=== PATIENT | male | born 1975 | race Caucasian/White ===

== ENCOUNTER 2017-08-30 22:19 | Emergency (ER) | payer BC, OTHER ==
[2017-08-30] MEDS ORDERED: NS 0.9% 1000 ML*IV.FLUID IV ONE (22:33)
[2017-08-30] MEDS ORDERED: Vancomycin(*) 1,000 MG in NS 0.9% 250 ML* 250 ML IVPB ONE (22:34)
[2017-08-30] MEDS ORDERED: Piperacillin/Tazobac ADVAN(*) 3.375 GM in NS 0.9% 100 ML* 100 ML IVPB ONE (22:34)
[2017-08-30 23:09] LABS: Hematocrit 49 % (42-52); Hemoglobin 16.8 g/dl (14.0-18.0); Mean Corpuscular HGB Conc 35 g/dl (31-36); Mean Corpuscular Hemoglobin 29 pg (27-31); Mean Corpuscular Volume 84 fL (80-94); Mean Platelet Volume 8 um3 (7.4-10.4); Platelet Count 234 10^3/ul (150-450); Red Blood Count 5.78 10^6/ul (4.0-5.4); Red Cell Distribution Width 14 % (10.5-15); White Blood Count 16.4 10^3/ul (3.5-10.8)
[2017-08-30 23:21] LABS: EGFR Non-African American 75.7 (>60)
[2017-08-30 23:24] LABS: INR 0.88 (0.77-1.02)
[2017-08-30] MEDS ORDERED: Iohexol 300* (CONTRAST) 10 ML SDV IV ONE ×2 (23:25→23:32)
[2017-08-31 00:13] LABS: ABS Basophils 0.1 10^3/ul (0-0.2); ABS Eosinophils 0.1 10^3/ul (0-0.6); ABS Lymphocytes 3.4 10^3/ul (1.0-4.8); ABS Monocytes 1.7 10^3/ul (0-0.8); ABS Neutrophils 11.1 10^3/ul (1.5-7.7); ABS Nucleated RBC 0 10^3/ul; Eosinophil % 0.7 % (0-6); Lymphocyte % 20.4 % (25-47); Nucleated Red Blood Cells % 0.1
[2017-08-31 01:44] VITALS: BP 147/88
--- NOTE | 2017-08-31 07:58 | RAD ---
HISTORY: Left facial abscess, possible infection of face COMPARISONS: None TECHNIQUE: Multiple contiguous axial CT scans were obtained of the face with intravenous contrast, with coronal and sagittal multiplanar reformations. FINDINGS: BONES: There is no displaced fracture or dislocation. The orbital rim is intact. The zygomatic arch is intact. The pterygoid plates are intact. ORBITS: The globes are round. The optic nerves are symmetric. The extraocular musculature is normal. There is no post septal or intraconal inflammatory change. There is no retrobulbar hematoma. PARANASAL SINUSES: There is mucosal thickening of the maxillary sinuses bilaterally. BRAIN AND SOFT TISSUE: Unremarkable. There is no loculated fluid collection to suggest abscess. OTHER: Carious disease is noted. There is no abnormal enhancement. IMPRESSION: CARIOUS DISEASE. RECOMMEND CONSIDERATION OF DENTAL CONSULTATION. NO LOCULATED FLUID COLLECTION TO SUGGEST ABSCESS.
--- NOTE | 2017-09-28 20:27 | ED ---
Oleksandr Sultana Stephanie, scribed for Gilma Cordoba MD on 08/30/17 at 2340 . Throat Pain/Nasal Congestion - HPI Summary HPI Summary: The pt is a 42 y/o M presenting to the ED with c/o facial pain that began on 08/29 s/p cutting his L nostril with a nose hair cecilio on 08/26/17. Symptoms include fever (99.3 F). The pt received Keflex from Dr. Lizarraga. He states he took 2 pills thus far and states he began to feel better within the last 20 minutes. - History of Current Complaint Chief Complaint: EDFacialInjury Time Seen by Provider: 08/30/17 22:35 Hx Obtained From: Patient Onset/Duration: Gradual Onset, Lasting Days - 4, Still Present Severity: Mild - Allergies/Home Medications Allergies/Adverse Reactions: Allergies Allergy/AdvReac Type Severity Reaction Status Date / Time No Known Allergies Allergy Verified 08/30/17 22:26 PMH/Surg Hx/FS Hx/Imm Hx Endocrine/Hematology History: Denies: Hx Diabetes Cardiovascular History: Denies: Hx Hypertension History: Denies: Hx Renal Disease - Surgical History Surgery Procedure, Year, and Place: NONE Infectious Disease History: No Infectious Disease History: Denies: Traveled Outside the [place] in Last 30 Days - Family History Known Family History: Positive: Unknown - Reviewed and noncontributory - Social History Occupation: Employed Full-time Lives: With Family Alcohol Use: Occasionally Substance Use Type: Reports: None Smoking Status (MU): Never Smoked Tobacco Review of Systems Positive: Fever Positive: Other - L facial pain All Other Systems Reviewed And Are Negative: Yes Physical Exam - Summary Physical Exam Summary: VITAL SIGNS: Reviewed. GENERAL: Patient is a well-developed and nourished MALE who is lying comfortable in the stretcher. Patient is not in any acute respiratory distress. HEAD AND FACE: No signs of trauma. No ecchymosis, hematomas or skull depressions. No sinus tenderness. Mild hyperemia without bleeding over mucosa of L nostril. Mild facial tenderness with minimal swelling. EYES: PERRLA, EOMI x 2, No injected conjunctiva, no nystagmus. EARS: Hearing grossly intact. Ear canals and tympanic membranes are within normal limits. MOUTH: Oropharynx within normal limits. NECK: Supple, trachea is midline, no adenopathy, no JVD, no carotid bruit, no c- spine tenderness, neck with full ROM. CHEST: Symmetric, no tenderness at palpation LUNGS: Clear to auscultation bilaterally. No wheezing or crackles. CVS: Regular rate and rhythm, S1 and S2 present, no murmurs or gallops appreciated. ABDOMEN: Soft, non-tender. No signs of distention. No rebound no guarding, and no masses palpated. Bowel sounds are normal. EXTREMITIES: FROM in all major joints, no edema, no cyanosis or clubbing. NEURO: Alert and oriented x 3. No acute neurological deficits. Speech is normal and follows commands. SKIN: Dry and warm Triage Information Reviewed: Yes Vital Signs On Initial Exam: Initial Vitals Temp Pulse Resp BP Pulse Ox 99.0 F 109 16 177/111 99 08/30/17 22:23 08/30/17 22:23 08/30/17 22:23 08/30/17 22:23 08/30/17 22:23 Vital Signs Reviewed: Yes Diagnostics - Vital Signs Vital Signs Temp Pulse Resp BP Pulse Ox 08/30/17 22:23 99.0 F 109 16 177/111 99 - Laboratory Lab Results: Lab Results 08/30/17 08/30/17 08/30/17 Range/Units 23:00 23:00 23:00 WBC 16.4 H (3.5-10.8) 10^3/ul RBC 5.78 H (4.0-5.4) 10^6/ul Hgb 16.8 (14.0-18.0) g/dl Hct 49 (42-52) % MCV 84 (80-94) fL MCH 29 (27-31) pg MCHC 35 (31-36) g/dl RDW 14 (10.5-15) % Plt Count 234 (150-450) 10^3/ul MPV 8 (7.4-10.4) um3 Neut % (Auto) Pending Lymph % (Auto) Pending Beadle % (Auto) Pending Eos % (Auto) Pending Baso % (Auto) Pending Absolute Neuts (auto) Pending Absolute Lymphs (auto) Pending Absolute Monos (auto) Pending Absolute Eos (auto) Pending Absolute Basos (auto) Pending Absolute Nucleated RBC Pending Nucleated RBC % Pending INR (Anticoag Therapy) 0.88 (0.77-1.02) APTT 26.7 (26.0-36.3) seconds Sodium 134 (133-145) mmol/L Potassium Pending Chloride 99 L (101-111) mmol/L Carbon Dioxide 25 (22-32) mmol/L Anion Gap Pending BUN 15 (6-24) mg/dL Creatinine 1.08 (0.67-1.17) mg/dL Est GFR ( Amer) 97.4 (>60) Est GFR (Non-Af Amer) 75.7 (>60) BUN/Creatinine Ratio 13.9 (8-20) Glucose 137 H (70-100) mg/dL Lactic Acid (0.5-2.0) mmol/L Calcium 9.6 (8.6-10.3) mg/dL Total Bilirubin 1.30 H (0.2-1.0) mg/dL AST Pending ALT 30 (7-52) U/L Alkaline Phosphatase 67 (34-104) U/L C-Reactive Protein 14.82 H (< 5.00) mg/L Total Protein 7.9 (6.4-8.9) g/dL Albumin 4.5 (3.2-5.2) g/dL Globulin 3.4 (2-4) g/dL Albumin/Globulin Ratio 1.3 (1-3) 08/30/17 Range/Units 23:00 WBC (3.5-10.8) 10^3/ul RBC (4.0-5.4) 10^6/ul Hgb (14.0-18.0) g/dl Hct (42-52) % MCV (80-94) fL MCH (27-31) pg MCHC (31-36) g/dl RDW (10.5-15) % Plt Count (150-450) 10^3/ul MPV (7.4-10.4) um3 Neut % (Auto) Lymph % (Auto) Beadle % (Auto) Eos % (Auto) Baso % (Auto) Absolute Neuts (auto) Absolute Lymphs (auto) Absolute Monos (auto) Absolute Eos (auto) Absolute Basos (auto) Absolute Nucleated RBC Nucleated RBC % INR (Anticoag Therapy) (0.77-1.02) APTT (26.0-36.3) seconds Sodium (133-145) mmol/L Potassium Chloride (101-111) mmol/L Carbon Dioxide (22-32) mmol/L Anion Gap BUN (6-24) mg/dL Creatinine (0.67-1.17) mg/dL Est GFR ( Amer) (>60) Est GFR (Non-Af Amer) (>60) BUN/Creatinine Ratio (8-20) Glucose (70-100) mg/dL Lactic Acid 1.7 (0.5-2.0) mmol/L Calcium (8.6-10.3) mg/dL Total Bilirubin (0.2-1.0) mg/dL AST ALT (7-52) U/L Alkaline Phosphatase (34-104) U/L C-Reactive Protein (< 5.00) mg/L Total Protein (6.4-8.9) g/dL Albumin (3.2-5.2) g/dL Globulin (2-4) g/dL Albumin/Globulin Ratio (1-3) Result Diagrams: 08/30/17 23:00 08/31/17 00:07 Lab Statement: Any lab studies that have been ordered have been reviewed, and results considered in the medical decision making process. - CT Maxillofacial CT Interpretation: No Acute Changes CT Interpretation Completed By: Radiologist - No abscess or other evidence of acute pathology. ED physician has reviewed this imaging report and agrees. EENT Course/Dx - Course Course Of Treatment: CT maxillofacial shows no evidence of abscess or pathology. The pt is stable and will be discharged home. - Diagnoses Provider Diagnoses: mild facial cellulitis Discharge - Sign-Out/Discharge Documenting (check all that apply): Discharge - Discharge Plan Condition: Stable Disposition: HOME Prescriptions: Clindamycin Cap(NF) [Clindamycin Cap 300 mg Cap(NF)] 300 mg PO Q6H #30 cap Ibuprofen TAB* [Motrin TAB* 800 MG] 800 mg PO Q6H PRN #30 tab PRN Reason: Pain Patient Education Materials: Cellulitis (ED) Referrals: Bright Lizarraga MD [Primary Care Provider] - 3 Days Additional Instructions: RETURN TO EMERGENCY DEPARTMENT FOR ANY NEW OR WORSENING SYMPTOMS - Billing Disposition and Condition Condition: STABLE Disposition: HOME The documentation as recorded by the Oleksandr fallon Stephanie accurately reflects the service I personally performed and the decisions made by , Gilma Cordoba MD.
== END 2017-08-31 01:44 | disposition home or self-care (01) ==
LOC: ED 22:19
DX: L03.211 Cellulitis of face (principal)
CPT/HCPCS: 36415; 70487; 80053; 83605; 85025; 85610; 85730; 86140; 87040; 96365; 96366; 99284; J2543; Q9967

== ENCOUNTER 2021-02-17 07:26 | Observation (INO) ==
[2021-02-17] MEDS ORDERED: NS 0.9% 1000 ml BAG 1,000 ML IV ONE (08:12)
[2021-02-17] MEDS ORDERED: Ondansetron 4 mg VIAL 2 MG/ML 2 ml VIAL IV ONE (08:12)
[2021-02-17 09:03] LABS: Hematocrit 48 % (42-52); Hemoglobin 16.3 g/dL (14.0-18.0); Mean Corpuscular HGB Conc 34 g/dL (31-36); Mean Corpuscular Hemoglobin 29 pg (27-31); Mean Corpuscular Volume 86 fL (80-94); Mean Platelet Volume 8.3 fL (7.4-10.4); Platelet Count 222 10^3/uL (150-450); Red Blood Count 5.56 10^6 /uL (4.18-5.48); Red Cell Distribution Width 14 % (10-15); White Blood Count 22.5 10^3/uL (3.5-10.8)
[2021-02-17 09:21] LABS: Albumin 4.7 g/dL (3.2-5.2); Albumin/Globulin Ratio 1.6 (1-3); Calcium 9.5 mg/dL (8.6-10.3); EGFR African American 108.6 (>60); EGFR Non-African American 89.8 (>60); Globulin 2.9 g/dL (2-4); Potassium 3.8 mmol/L (3.5-5.0); Total Bilirubin 1.8 mg/dL (0.2-1.0); Total Protein 7.6 g/dL (6.4-8.9)
[2021-02-17] MEDS ORDERED: Iohexol 300 (CONTRAST) 10 ML SDV IV ONE (09:52)
[2021-02-17 10:10] LABS: ABS Lymphocytes 0.9 10^3/ul (1.0-4.8); ABS Neutrophils 19.5 10^3/ul (1.5-7.7); Lymphocyte % 4.1 %
[2021-02-17] MEDS ORDERED: Piperacillin/Tazobac ADVAN 3.375 GM in NS 0.9% 100 ml BAG 100 ML IV ONE (10:49)
[2021-02-17 12:26] LABS: Urine Appearance Clear; Urine Bilirubin Negative (Negative); Urine Blood Negative (Negative); Urine Color Yellow; Urine Glucose Negative (Negative); Urine Ketones Negative (Negative); Urine Nitrite Negative (Negative); Urine Protein Negative (Negative); Urine Specific Gravity 1.046 (1.002-1.030); Urine Urobilinogen Negative (Negative)
[2021-02-17] MEDS ORDERED: Ondansetron 4 mg VIAL 2 MG/ML 2 ml VIAL IV PRN ×3 (13:00→17:16)
[2021-02-17] MEDS ORDERED: Acetaminophen IV 1 GM/100ML 100 ML IV ONE ×3 (13:27→18:23)
[2021-02-17] MEDS ORDERED: Lactated Ringers 1000 ml BAG IV.FLUID IV ONE (14:53)
[2021-02-17] MEDS ORDERED: Naloxone 0.4 mg VIAL 0.4 mg/ml 1 ml VIAL IV PRN ×3 (15:40→17:34)
[2021-02-17] MEDS ORDERED: Metoclopramide 5 MG/ML VIAL (10 mg) IV PRN ×2 (15:40→17:16)
[2021-02-17] MEDS ORDERED: Buffered Lidocaine 1% SYRIN 1 ml INTRADERM ONE (15:40)
[2021-02-17] MEDS ORDERED: HYDROcodone/ACETAMIN 5/325 mg TAB PO PRN ×2 (15:40→17:16)
[2021-02-17] MEDS ORDERED: Sodium Citrate/Citric Acid LIQ 15 ML UDC PO ONE (15:40)
[2021-02-17] MEDS ORDERED: fentaNYL 100 mcg/2 ml 50 MCG/ML VIAL IV PRN ×3 (15:40→17:34)
[2021-02-17] MEDS ORDERED: Midazolam 2 mg/2 ml VIAL 1 mg/ml 2 ml VIAL (2 mg) ONE (15:58)
[2021-02-17] MEDS ORDERED: fentaNYL 250 mcg/5 ml 50 MCG/ML 5 ml VIAL (250 MCG) ONE (15:58)
[2021-02-17] MEDS ORDERED: Propofol 10 MG/ML 20 ML BTL ONE (15:58)
[2021-02-17] MEDS ORDERED: Lidocaine 2% PF 5 ML VIAL ONE (15:58)
[2021-02-17] MEDS ORDERED: Rocuronium 50 mg VIAL 10 mg/ml 5 ml VIAL (50 mg) ONE ×2 (15:58→17:34)
[2021-02-17] MEDS ORDERED: Lactated Ringers 1000 ml BAG 1,000 ML IV SCH (16:00)
[2021-02-17] MEDS ORDERED: Bupivacaine 0.25% SDV 30 ML ONE (16:03)
[2021-02-17] MEDS ORDERED: Succinylcholine 200 mg VIAL 20 mg/ml 10 ml VIAL (200 mg) ONE (16:41)
[2021-02-17] MEDS ORDERED: Piperacillin/Tazobac 3.375 GM BAG ONE (17:12)
[2021-02-17] MEDS ORDERED: diPHENhydraMINE IV 50 MG/ML 1 ml VIAL (BENADRYL) IV PRN (17:34)
[2021-02-17] MEDS ORDERED: HYDROmorphone 1 MG/1 ML SYRINGE IV PRN (17:34)
[2021-02-17] MEDS ORDERED: DiMENhydriNATE IV 50 mg/ml 1 ml VIAL IV PUSH PRN (17:34)
[2021-02-17] MEDS ORDERED: Ondansetron 4 mg VIAL 2 MG/ML 2 ml VIAL ONE (17:45)
[2021-02-17] MEDS ORDERED: Dexamethasone IV 4 MG/ML VIAL 1 ml VIAL ONE (17:45)
[2021-02-17] MEDS ORDERED: Acetaminophen IV 1 GM/100ML 100 ML IV SCH (18:30)
[2021-02-17] MEDS: NS 0.9% 1000 ml BAG 1,000 ML IV SCH (20:09)
[2021-02-18] MEDS: HYDROcodone/ACETAMIN 5/325 mg TAB PO PRN ×2 (03:47→09:27)
[2021-02-18] MEDS: NS 0.9% 1000 ml BAG 1,000 ML IV SCH (03:52)
[2021-02-18 07:26] VITALS: BP 100/64
== END 2021-02-18 10:30 | disposition home or self-care (01) ==
LOC: ED 07:26 → EDSTATUS 15:15 → ED 16:13 → OR 17:15 → INTOOBSV 17:18 → AA 17:18 → SSU 18:10
PROVIDERS: ADMIT Hospitalist; ATTEND Surgery